=== PATIENT | male | born 1990 | race Caucasian/White ===

== ENCOUNTER 2018-09-08 23:28 | Emergency (ER) | payer MEDICAID, SELFPAY ==
[2018-09-08 23:29] VITALS: BP 134/70; PULSE 115; RESP 18; TEMP 36.6; O2SAT 99; BMI 19.5
--- NOTE | 2018-09-08 23:43 | ED.VIS.GEN ---
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 RHD. Last tetanus was 5 yrs ago. Past Medical History - Allergies and Home Meds Allergies/Adverse Reactions: Allergies No Known Allergies Allergy (Verified 09/08/18 23:30) Primary Care Physician: Care Physician,No Primary [Primary Care Provider] - Surgical History: noncontributory Smoking Status: Current every day smoker Review of Systems Skin: Reports: Wounds Neurological: Denies: Weakness, Parasthesia, Numbness Physical Exam Vital Signs/Narrative: Vital Signs Temp Pulse Resp BP Pulse Ox 09/08/18 23:29 97.9 F 115 H 18 134/70 H 99 Inital Vital Signs reviewed: Yes General: Well nourished, Well developed Head: Normocephalic, Atraumatic Extremities: Tenderness - mild left long and ring fingers at lacerations, - - nml fingers extension, FDS, and FDP function w/o significant pain Skin: Normal color, Trauma - 0.5cm partial thickness clean laceration dorsal left long finger w/o active bleeding. 1cm full thickness irregular, clean, mostly linear laceration to dorsal-radial aspect of left ring finger w/ active venous oozing of blood, controllable. Neurological: Alert, Oriented x3, Cranial nerves II-XII grossly intact, Normal Strength, Normal Sensation Psychological: Normal affect Diagnostic/Tx/Re-eval - Medical Decision Making The minor laceration on his long finger was cleansed and bandaged with bacitracin, no repair indicated. The one on his ring finger, however, is over his PIPJ dorsally, and I think is amenable to repair. This was done using 3 sutures, he was advised to return or follow-up 10-14 days for removal. Procedures - Lacerations left ring finger Length: 1 cm Depth: Sub Q Shape: Linear Prep: Sterile Conditions, Shure-Clens, Chlorhexadine Laceration repair: Wound explored - no FB, visible tendon/vessel/bone Irrigated (ml): 60 Number of Sutures/[place]: 3 Suture Information: Ethilon, Simple, 4-0 Comment: no complications, tolerated well ED Disposition - Plan for ED Patient: Disposition: Home or Assisted Living Chief Complaint: Laceration Diagnosis: Laceration of left middle finger w/o foreign body w/o damage to nail, Laceration of left ring finger w/o foreign body w/o damage to nail Instructions: ED Laceration Hand Referrals: Nirmala Teran DO [STAFF PHYSICIAN] - 10-14 Days suture removal (or may return to ER)
--- NOTE | 2018-09-08 23:48 | ED.DCSUM_ITS ---
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 RHD. Last tetanus was 5 yrs ago. Past Medical History - Allergies and Home Meds Allergies/Adverse Reactions: Allergies No Known Allergies Allergy (Verified 09/08/18 23:30) Primary Care Physician: Care Physician,No Primary [Primary Care Provider] - Surgical History: noncontributory Smoking Status: Current every day smoker Review of Systems Skin: Reports: Wounds Neurological: Denies: Weakness, Parasthesia, Numbness Physical Exam Vital Signs/Narrative: Vital Signs Temp Pulse Resp BP Pulse Ox 09/08/18 23:29 97.9 F 115 H 18 134/70 H 99 Inital Vital Signs reviewed: Yes General: Well nourished, Well developed Head: Normocephalic, Atraumatic Extremities: Tenderness - mild left long and ring fingers at lacerations, - - nml fingers extension, FDS, and FDP function w/o significant pain Skin: Normal color, Trauma - 0.5cm partial thickness clean laceration dorsal left long finger w/o active bleeding. 1cm full thickness irregular, clean, mostly linear laceration to dorsal-radial aspect of left ring finger w/ active venous oozing of blood, controllable. Neurological: Alert, Oriented x3, Cranial nerves II-XII grossly intact, Normal Strength, Normal Sensation Psychological: Normal affect Diagnostic/Tx/Re-eval - Medical Decision Making The minor laceration on his long finger was cleansed and bandaged with bacitracin, no repair indicated. The one on his ring finger, however, is over his PIPJ dorsally, and I think is amenable to repair. This was done using 3 sutures, he was advised to return or follow-up 10-14 days for removal. Procedures - Lacerations left ring finger Length: 1 cm Depth: Sub Q Shape: Linear Prep: Sterile Conditions, Shure-Clens, Chlorhexadine Laceration repair: Wound explored - no FB, visible tendon/vessel/bone Irrigated (ml): 60 Number of Sutures/[place]: 3 Suture Information: Ethilon, Simple, 4-0 Comment: no complications, tolerated well ED Disposition - Plan for ED Patient: Disposition: Home or Assisted Living Chief Complaint: Laceration Diagnosis: Laceration of left middle finger w/o foreign body w/o damage to nail, Laceration of left ring finger w/o foreign body w/o damage to nail Instructions: ED Laceration Hand Referrals: Nirmala Teran DO [STAFF PHYSICIAN] - 10-14 Days suture removal (or may return to ER)
[2018-09-09 00:40] VITALS: BP 126/81; PULSE 88; RESP 16; O2SAT 98
--- OUTSIDE RECORDS SUMMARY | 2018-11-03 18:03 | XMS RPT_ITS ---
:1990 Author Organization [facility] Care Team Providers Name Role Phone PHYSICIAN, NONE Primary Care Unavailable GERALD KELLY Attending Unavailable Primay Care Physicia, No Primary Care Unavailable MAXIMILIAN HANLEY Attending Unavailable PROBLEMS PROBLEMS No Problem Records FoundPROCEDURES PROCEDURES No Procedure Records FoundRESULTS RESULTS EMERGENCY DEPARTMENT Observed: 09/09/2018 Status: F Source: [place] SUMMARY 12:36 AM [facility] [place] [facility] Medical Records Department [address] [facility] [place] [address] Emergency Department Summary 09/08/18 2343 MR#: [id number] Acct: [id number] Name: JHONNY HOU Jr. 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 RHD. Last tetanus was 5 yrs ago. Past Medical History - Allergies and Home Meds Allergies/Adverse Reactions: Allergies No Known Allergies Allergy (Verified 09/08/18 23:30) Primary Care Physician: Care Physician,No Primary [Primary Care Provider] - Surgical History: noncontributory Smoking Status: Current every day smoker Review of Systems Skin: Reports: Wounds Neurological: Denies: Weakness, Parasthesia, Numbness Physical Exam Vital Signs/Narrative: Vital Signs 09/08/18 23:29 97.9 F 115 H 18 134/70 H 99 Inital Vital Signs reviewed: Yes General: Well nourished, Well developed Head: Normocephalic, Atraumatic Extremities: Tenderness - mild left long and ring fingers at lacerations, - - nml fingers extension, FDS, and FDP function w/o significant pain Skin: Normal color, Trauma - 0.5cm partial thickness clean laceration dorsal left long finger w/o active bleeding. 1cm full thickness irregular, clean, mostly linear laceration to dorsal-radial aspect of left ring finger w/ active venous oozing of blood, controllable. Neurological: Alert, Oriented x3, Cranial nerves II-XII grossly intact, Normal Strength, Normal Sensation Psychological: Normal affect Diagnostic/Tx/Re-eval - Medical Decision Making The minor laceration on his long finger was cleansed and bandaged with bacitracin, no repair indicated. The one on his ring finger, however, is over his PIPJ dorsally, and I think is amenable to repair. This was done using 3 sutures, he was advised to return or follow-up 10-14 days for removal. Procedures - Lacerations left ring finger Length: 1 cm Depth: Sub Q Shape: Linear Prep: Sterile Conditions, Shure-Clens, Chlorhexadine Laceration repair: Wound explored - no FB, visible tendon/vessel/bone Irrigated (ml): 60 Number of Sutures/[place]: 3 Suture Information: Ethilon, Simple, 4-0 Comment: no complications, tolerated well ED Disposition - Plan for ED Patient: Disposition: Home or Assisted Living Chief Complaint: Laceration Diagnosis: Laceration of left middle finger w/o foreign body w/o damage to nail, Laceration of left ring finger w/o foreign body w/o damage to nail Instructions: ED Laceration Hand Referrals: Nirmala Teran DO [STAFF PHYSICIAN] - 10-14 Days suture removal (or may return to ER) What to do if you have Problems For any increased pain, shortness of breath, bleeding, nausea or vomiting, chest pain, or any unexpected problems, contact your Primary Care Provider. Call [facility] ([phone]) or report to the closest Emergency Room. Call 911 if necessary. 09/09/18 0036 <Electronically signed by Maximilian Hanley MD> Date Maximilian Hanley MD Cosigner Signature (If Indicated): Date CC: No Primary Care Physician KRUPA Observed: 07/31/2018 Status: COMPLETED Source: [place] 5:15 PM [facility] REPOSIT[facility] Office Visit (WSTR) JHONNY HOU ([id number]) 1990 M Date Time Provider Department 07/31/18 5:15 PM KINJAL CORNEJO) [facility] During your visit today, we recorded the following information about you: Temperature Pulse Respiration Blood pressure 97.9 degrees 66/minute 16/minute 98/60 Weight 60.1 kg Kinjal Cornejo PA-C 07/31/2018 6:18 PM Signed Subjective HPI Patient presents with cough and congestion for 2-3 weeks. He states several of his coworkers have been ill as well. He does smoke 1-2 packs of cigarettes a day. Denies chest pain or shortness of breath. His cough has been productive. He states he had a sore throat beginning that has passed. No OTC meds taken. Review of Systems Constitutional: Negative. Negative for chills and fever. HENT: Positive for congestion and sinus pain. Eyes: Negative. Respiratory: Positive for cough. Negative for sputum production, shortness of breath and wheezing. Cardiovascular: Negative. Gastrointestinal: Negative. Genitourinary: Negative. Skin: Negative. All other systems reviewed and are negative. No past medical history on file. Current Outpatient Prescriptions: amoxicillin-clavulanic acid (AUGMENTIN) 875-125 mg per tablet Take 1 tablet by mouth twice daily for 10 days. Disp: 20 tablet Rfl: 0 Hvkfezvyxwslbya-Cnyglnseh-YF (BROMFED DM) 2-30-10 mg/5 mL syrup Take 10 mL by mouth four times daily as needed. Disp: 200 mL Rfl: 0 No current facility-administered medications for this visit. No past surgical history on file. No family history on file. Social History Substance Use Topics - Smoking status: Current Every Day Smoker - Smokeless tobacco: Never Used - Alcohol use Not on file BP 98/60 Pulse 66 Temp 36.6 ?C (97.9 ?F) (Tympanic) Resp 16 Wt 60.1 kg (132 lb 6.4 oz) SpO2 97% Objective Physical Exam Constitutional: He is oriented to person, place, and time and well-developed, well-nourished, and in no distress. HENT: Head: Normocephalic and atraumatic. Right Ear: Tympanic membrane, external ear and ear canal normal. Left Ear: Tympanic membrane, external ear and ear canal normal. Nose: Mucosal edema and rhinorrhea present. Right sinus exhibits maxillary sinus tenderness. Left sinus exhibits maxillary sinus tenderness. Mouth/Throat: Uvula is midline, oropharynx is clear and moist and mucous membranes are normal. Cardiovascular: Normal rate, regular rhythm and normal heart sounds. Pulmonary/Chest: Effort normal and breath sounds normal. harsh cough noted Neurological: He is alert and oriented to person, place, and time. Skin: Skin is warm and dry. Psychiatric: Affect and judgment normal. Nursing note and vitals reviewed. ASSESSMENT/PLAN: 1. Sinobronchitis - ICD9: 473.9, 490, ICD10: J32.9, J40 - Will begin treatment with Augmentin 875 mg PO BID for 10 days - Supportive care with plenty of fluids, rest, and analgesia prn. - Follow up in one week if symptoms persist or worsen. Kinjal Cornejo PA-C Referring Provider: SELF [[id number]] Allergies As of Date: 07/31/2018 (No Known Allergies) Date Reviewed: 07/31/2018 Reviewed by: Tsering Levy LPN - Fully Assessed Reason for Visit: cough, sinus and chest congestion [Other] Cmt: x 2 weeks Primary Visit Diagnosis:Sinobronchitis [J32.9, J40] Order(s):amoxicillin-clavulanic acid (AUGMENTIN) 875-125 mg per tabletTake 1 tablet by mouth twice daily for 10 days.Disp: 20 tabletRfl: 0 Rmrfsqgveihsizh-Uzwumlgia-XU (BROMFED DM) 2-30-10 mg/5 mL syrupTake 10 mL by mouth four times daily as needed.Disp: 200 mLRfl: 0 Prescriptions as of 07/31/2018 Sig: AMOXICILLIN 875 MG-POTASSIUM * Take 1 tablet by mouth twice * BROMPHENIRAMINE-PSEUDOEPHEDRI* Take 10 mL by mouth four time* Problem List As Of Date: 07/31/2018 (None) Prescriptions ordered this encounter Disp Refills Start End AMOXICILLIN 875 MG-POTASSIUM CLAVULA* 20 t* 0 07/31/2018 08/10/2018 Route: ORAL Sig: Take 1 tablet by mouth twice daily for 10 days. ZVUCZPMIOTUMIJZ-WTQISKKSGHBBAHT-WZ 2* 200 * 0 07/31/2018 Route: ORAL Sig: Take 10 mL by mouth four times daily as needed. Encounter Status:Closed by KINJAL CORNEJO PA-C on 07/31/18 PROGRESS Observed: 07/31/2018 Status: COMPLETED Source: [place] 5:08 PM [facility] ID: [id number] Author: Kinjal Cornejo (Pa) Service: (none) Author Type: Physician Pharmaceutical Physician Type: Progress Notes Filed: 07/31/2018 6:18 PM Note Text: Subjective HPI Patient presents with cough and congestion for 2-3 weeks. He states several of his coworkers have been ill as well. He does smoke 1-2 packs of cigarettes a day. Denies chest pain or shortness of breath. His cough has been productive. He states he had a sore throat beginning that has passed. No OTC meds taken. Review of Systems Constitutional: Negative. Negative for chills and fever. HENT: Positive for congestion and sinus pain. Eyes: Negative. Respiratory: Positive for cough. Negative for sputum production, shortness of breath and wheezing. Cardiovascular: Negative. Gastrointestinal: Negative. Genitourinary: Negative. Skin: Negative. All other systems reviewed and are negative. No past medical history on file. Current Outpatient Prescriptions: amoxicillin-clavulanic acid (AUGMENTIN) 875-125 mg per tablet Take 1 tablet by mouth twice daily for 10 days. Disp: 20 tablet Rfl: 0 Obmcfynesdmrqph-Yulrqgiuw-CD (BROMFED DM) 2-30-10 mg/5 mL syrup Take 10 mL by mouth four times daily as needed. Disp: 200 mL Rfl: 0 No current facility-administered medications for this visit. No past surgical history on file. No family history on file. Social History Substance Use Topics - Smoking status: Current Every Day Smoker - Smokeless tobacco: Never Used - Alcohol use Not on file BP 98/60 Pulse 66 Temp 36.6 ?C (97.9 ?F) (Tympanic) Resp 16 Wt 60.1 kg (132 lb 6.4 oz) SpO2 97% Objective Physical Exam Constitutional: He is oriented to person, place, and time and well-developed, well-nourished, and in no distress. HENT: Head: Normocephalic and atraumatic. Right Ear: Tympanic membrane, external ear and ear canal normal. Left Ear: Tympanic membrane, external ear and ear canal normal. Nose: Mucosal edema and rhinorrhea present. Right sinus exhibits maxillary sinus tenderness. Left sinus exhibits maxillary sinus tenderness. Mouth/Throat: Uvula is midline, oropharynx is clear and moist and mucous membranes are normal. Cardiovascular: Normal rate, regular rhythm and normal heart sounds. Pulmonary/Chest: Effort normal and breath sounds normal. harsh cough noted Neurological: He is alert and oriented to person, place, and time. Skin: Skin is warm and dry. Psychiatric: Affect and judgment normal. Nursing note and vitals reviewed. ASSESSMENT/PLAN: 1. Sinobronchitis - ICD9: 473.9, 490, ICD10: J32.9, J40 - Will begin treatment with Augmentin 875 mg PO BID for 10 days - Supportive care with plenty of fluids, rest, and analgesia prn. - Follow up in one week if symptoms persist or worsen. Kinjal Cornejo PA-C ALLERGIES ALLERGIES DATE TYPE / CODE NAME / CODE REACTION SEVERITY SOURCE 09/08/2018 [facility] 06[facility](SNOMED [id number](RXNOR Repository CT) M) ENCOUNTERS ENCOUNTERS ADMIT/DISCHARGE ACCOUNT NUMBER ADMITTING ENCOUNTER LOCATION SOURCE CLASS 09/08/2018/09/09/20 [id number] Emergency [facility] [address] [place] [address] ding:ED Repository 08/23/2018/08/23/20 [id number] Emergency BBuilding:ER [address] Repository 07/31/2018/08/02/20 [id number] Ambulatory [address] Repository PAYERS PAYERS ENCOUNTER GUARANTOR PAYER SUBSCRIBER SOURCE 09/08/2018 JHONNY HOU Primary JHONNY García Jr.[address] Insurance:Ray Perez: [facility] y Number: [id number] Hospital [address]Ytu: 330 [id number] Repository [phone] () Date:[id number] [address]GO: 09/08/2018 Secondary NOT GIVENUNK [facility] Insurance:SELF PAY [facility] Number: Effective Repository Date:2018-09-08 08/23/2018 JHONNY MUNOZB: Primary JHONNY MUNOZB: [facility] [id number] Insurance:TEN MILE [id number] [place] [address] INSCOPolicy Number: [place], [place] [id number] [place], [place] [address]Zkh: (216) Date:2018-08-23 [id number]: () [id number] [phone] Name:[place] ()Tel: [phone] [facility] [phone] () [place], [place] [address]UG:
== END 2018-09-09 00:42 | disposition home or self-care (01) ==
PROVIDERS: Emergency Provider Emergency Medicine
DX: S61.213A Laceration without foreign body of left middle finger without damage to nail, initial encounter (principal); S61.215A Laceration without foreign body of left ring finger without damage to nail, initial encounter; F17.200 Nicotine dependence, unspecified, uncomplicated; W26.8XXA Contact with other sharp object(s), not elsewhere classified, initial encounter; Y93.89 Activity, other specified; Y92.009 Unspecified place in unspecified non-institutional (private) residence as the place of occurrence of the external cause; Y99.8 Other external cause status
CPT/HCPCS: 12001; 99283